=== PATIENT | male | born 1955 | race Caucasian/White ===

== ENCOUNTER 2018-02-18 09:55 | Outpatient (CLI) | payer MEDICAID | END 2018-02-18 23:59 | disposition home or self-care (01) | LOC: VAS 09:55 | PROVIDERS: ATTEND Surgery | DX: I70.213 Atherosclerosis of native arteries of extremities with intermittent claudication, bilateral legs (principal) | CPT/HCPCS: 93922; 93925 ==

== ENCOUNTER 2018-06-23 16:32 | Outpatient (CLI) | payer MEDICAID ==
[2018-06-23] MEDS ORDERED: iohexol 350MG/ML 100ml bottle IV ONE (16:44)
== END 2018-06-23 23:59 | disposition home or self-care (01) ==
LOC: 64 CT 16:32
PROVIDERS: ATTEND Radiology Vascular & Interventional Radiology
DX: K55.1 Chronic vascular disorders of intestine (principal); I70.303 Unspecified atherosclerosis of unspecified type of bypass graft(s) of the extremities, bilateral legs; F17.200 Nicotine dependence, unspecified, uncomplicated; F10.10 Alcohol abuse, uncomplicated
CPT/HCPCS: 75635; Q9967

== ENCOUNTER 2018-07-20 06:30 | Day surgery (SDC) | payer MEDICAID ==
[2018-07-20] VITALS (11 sets, daily range): BP systolic 110–131; BP diastolic 63–90
[~2018-07-20] VITALS: Ht 177.8 cm; Wt 68.9 kg
[~2018-07-20 06:30] MED LIST: HYDR-565 PO
[2018-07-20] MEDS ORDERED: normal saline 1000ml 1,000 ML IV PRN (06:50)
[2018-07-20] MEDS ORDERED: FINA1TAB17 (07:00)
[2018-07-20 07:50] LABS: BASOPHILS # (AUTO) 0.1 X10'3 (0-0.2); BASOPHILS % (AUTO) 0.6 % (0-1); EOSINOPHILS # (AUTO) 0.3 X10'3 (0-0.9); EOSINOPHILS % (AUTO) 3.1 % (0-6); HEMATOCRIT 39.5 % (42.0-52.0); HEMOGLOBIN 13.4 g/dl (14.0-17.9); LYMPHOCYTES # (AUTO) 4.1 X10'3 (1.1-4.8); LYMPHOCYTES % (AUTO) 42.7 % (21-51); MEAN CORPUSCULAR HEMOGLOBIN 30.1 PG (27.0-31.0); MEAN CORPUSCULAR VOLUME 88.6 FL (78-98); MEAN PLATELET VOLUME 8.6 FL (7.4-10.4); MONOCYTES # (AUTO) 0.7 X10'3 (0-0.9); MONOCYTES % (AUTO) 7.6 % (2-12); NEUTROPHILS # (AUTO) 4.4 X10'3 (1.8-7.7); PLATELET COUNT 310 X10'3 (140-440); RED BLOOD COUNT 4.46 X10'6 (4.70-6.10); RED CELL DISTRIBUTION WIDTH 14.9 % (11.5-14.5); WHITE BLOOD COUNT 9.6 X10'3 (4.5-11.0)
[2018-07-20] MEDS ORDERED: fentaNYL/PF 50MCG/1 ML 2ML syringe IV PRN (08:00)
[2018-07-20] MEDS ORDERED: midazolam 2 mg/2 ml injection IV PRN (08:00)
[2018-07-20] MEDS ORDERED: heparin 1,000 UNITS/NS 500ml 500 ML ICATH ONE (08:00)
[2018-07-20] MEDS ORDERED: LIDOcaine 1%/PF 5ML 10 MG/ML VIAL SQ ONE (08:00)
[2018-07-20 08:01] LABS: ALBUMIN 3.5 G/DL (3.4-5.0); ANION GAP 10 (8-16); BLOOD UREA NITROGEN 17 MG/DL (7-18); BUN/CREATININE RATIO 19.8 (5.4-32.0); CHLORIDE 101 MMOL/L (99-107); CREATININE 0.86 MG/DL (0.60-1.10); GLUCOSE 99 MG/DL (70-104); POTASSIUM 3.9 MMOL/L (3.5-5.1); SODIUM 136 MMOL/L (135-145); TOTAL CARBON DIOXIDE 25.3 MMOL/L (24-32); eGFR 90 ML/MIN
[2018-07-20 08:05] LABS: PROTHROMBIN TIME 10.2 SECONDS (9.0-12.0)
[2018-07-20] MEDS ORDERED: LIDOcaine 1%/PF 5ML 10 MG/ML VIAL ONE (08:37)
[2018-07-20] MEDS ORDERED: iohexol 300mg/ml 100ml inj. ONE (08:37)
[2018-07-20] MEDS ORDERED: midazolam 2 mg/2 ml injection ONE ×2 (08:47→09:11)
[2018-07-20] MEDS ORDERED: fentaNYL/PF 50MCG/1 ML 2ML syringe ONE ×2 (08:47→09:11)
[2018-07-20] MEDS ORDERED: heparin 1,000 UNITS/NS 500ml 500 ML ONE (08:47)
[2018-07-20] MEDS ORDERED: normal saline 1000ml 1,000 ML IV SCH (10:16)
== END 2018-07-20 14:50 | disposition home or self-care (01) ==
LOC: SSTAY O 06:30
PROVIDERS: ATTEND Radiology Vascular & Interventional Radiology
DX: I70.212 Atherosclerosis of native arteries of extremities with intermittent claudication, left leg (principal); I77.89 Other specified disorders of arteries and arterioles; M81.0 Age-related osteoporosis without current pathological fracture; F17.210 Nicotine dependence, cigarettes, uncomplicated; I25.10 Atherosclerotic heart disease of native coronary artery without angina pectoris; J44.9 Chronic obstructive pulmonary disease, unspecified; N40.0 Benign prostatic hyperplasia without lower urinary tract symptoms; M19.90 Unspecified osteoarthritis, unspecified site; F32.9 Major depressive disorder, single episode, unspecified; F10.21 Alcohol dependence, in remission; Z90.49 Acquired absence of other specified parts of digestive tract; Z86.69 Personal history of other diseases of the nervous system and sense organs; Z95.5 Presence of coronary angioplasty implant and graft; Z87.01 Personal history of pneumonia (recurrent); Z86.19 Personal history of other infectious and parasitic diseases; Z87.442 Personal history of urinary calculi; Z90.89 Acquired absence of other organs; Z98.890 Other specified postprocedural states; Z79.899 Other long term (current) drug therapy
CPT/HCPCS: 36245; 36415; 75630; 76937; 80048; 85025; 85610; 99152; 99153; A6219; C1769; C1887; C1894; J1644; J2001; J2250; J3010; J7030; Q9967; A4620